=== PATIENT | female | born 1990 | race Caucasian/White ===

== ENCOUNTER 2016-11-19 05:13 | Inpatient (IN) | payer BC, OTHER ==
[2016-11-19] MEDS ORDERED: SODIUM CHLORIDE 0.9% FLUSH 10 ML SOL IV PRN (07:24)
[2016-11-19] MEDS ORDERED: OXYTOCIN 10000 MU/ML SOL IM PRN (07:24)
[2016-11-19] MEDS ORDERED: MEPIVACAINE HCL 1% MPF 30 ML SOL INFIL PRN (07:24)
[2016-11-19] MEDS ORDERED: METHYLERGONOVINE MALEATE 0.2 MG/ML SOL IM PRN (07:24)
[2016-11-19] MEDS ORDERED: CARBOPROST 250 MCG/ML SOL IM PRN (07:24)
[2016-11-19] MEDS ORDERED: LACTATED RINGERS 1,000 ML IV PRN (07:24)
[2016-11-19] MEDS ORDERED: FENTANYL CITRATE 50 MCG/ML SOL IV PRN (07:24)
[2016-11-19 07:56] LABS: BASOPHILS % (AUTO) 0 % (0-3); EOSINOPHILS % (AUTO) 0 % (0-9); HEMATOCRIT 38 % (35-47); MEAN CORPUSCULAR HGB CONC 35.4 gm/dl (32.0-36.0); MEAN CORPUSCULAR VOLUME 92 fL (81-99); MONOCYTES % (AUTO) 5.6 % (0-12)
[2016-11-19] MEDS: SODIUM CHLORIDE 0.9% FLUSH 10 ML SOL IV SCH ×2 (11:23→15:55)
[2016-11-19] MEDS ORDERED: TERBUTALINE SULFATE 1 MG/ML SOL SC PRN (13:11)
[2016-11-19] MEDS ORDERED: LACTATED RINGERS 1,000 ML IV SCH ×2 (13:15→16:00)
[2016-11-19] MEDS ORDERED: OXYTOCIN 10000 MU/ML 20,000 MU in LACTATED RINGERS 1,000 ML IV SCH (13:15)
[2016-11-19] MEDS ORDERED: OXYTOCIN 10000 MU/ML SOL ONE (14:00)
[2016-11-19] MEDS ORDERED: LACTATED RINGERS 1,000 ML ONE (14:00)
[2016-11-19] MEDS ORDERED: NALBUPHINE HCL 20 MG/ML SOL IV PRN (15:54)
[2016-11-19] MEDS ORDERED: NALOXONE HYDROCHLORIDE 0.4 MG/ML SOL IV PRN (15:54)
[2016-11-19] MEDS ORDERED: EPHEDRINE SULFATE 50 MG/ML SOL IV PRN (15:54)
[2016-11-19] MEDS ORDERED: DIPHENHYDRAMINE 50 MG/ML SOL IV PRN (15:54)
[2016-11-19] MEDS: LACTATED RINGERS 1,000 ML IV SCH ×2 (16:07→16:20)
[2016-11-19] MEDS ORDERED: ROPIVACAINE HYDROCHLORIDE 5 MG/ML SOL ONE (16:14)
[2016-11-19] MEDS ORDERED: FENTANYL CITRATE 50 MCG/ML SOL ONE (16:14)
[2016-11-19] MEDS ORDERED: LIDOCAINE HCL 2% MPF SOL ONE (16:14)
[2016-11-19] MEDS ORDERED: METHYLERGONOVINE MALEATE 0.2 MG TAB PO PRN (19:47)
[2016-11-19] MEDS ORDERED: BISACODYL 10 MG SUP PR PRN (19:47)
[2016-11-19] MEDS ORDERED: TEMAZEPAM 15MG 15 MG CAP PO PRN (19:47)
[2016-11-19] MEDS ORDERED: APAP/HYDROCODONE 325/5 TAB PO PRN (19:47)
[2016-11-19] MEDS ORDERED: FLEET ENEMA PR PRN (19:47)
[2016-11-19] MEDS ORDERED: WITCH HAZEL 1 EA PAD TOP PRN (19:47)
[2016-11-19] MEDS ORDERED: BENZOCAINE/MENTHOL 1 SPR TOP PRN (19:47)
[2016-11-19] MEDS: IBUPROFEN 600 MG TAB PO PRN (20:43)
[2016-11-19] MEDS: DOCUSATE SODIUM 100 MG SGL PO SCH (20:43)
[2016-11-20] MEDS: SODIUM CHLORIDE 0.9% FLUSH 10 ML SOL IV SCH ×2 (00:45→08:28)
[2016-11-20 01:25] VITALS: RESP 16
[2016-11-20] MEDS: IBUPROFEN 600 MG TAB PO PRN ×4 (02:44→20:13)
[2016-11-20 08:12] VITALS: O2SAT 97
[2016-11-20] MEDS: DOCUSATE SODIUM 100 MG SGL PO SCH ×2 (08:27→20:13)
[2016-11-21] MEDS: IBUPROFEN 600 MG TAB PO PRN ×3 (02:24→15:48)
[2016-11-21] MEDS ORDERED: MULTIVITAMIN2 1 EA TAB PO SCH (09:00)
[2016-11-21] MEDS ORDERED: FOLIC ACID 1 MG TAB PO SCH (09:00)
[2016-11-21] MEDS: DOCUSATE SODIUM 100 MG SGL PO SCH (09:41)
[2016-11-21 09:46] VITALS: TEMP 98.2
[2016-11-21 17:37] VITALS: BP 112/78; PULSE 72
== END 2016-11-21 18:05 | disposition home or self-care (01) | DRG 775 ==
LOC: OB 05:13 → OBSVTOIN 05:13
PROVIDERS: ADMIT Family Medicine; ATTEND Family Medicine
PROC: 10E0XZZ Delivery of Products of Conception, External Approach (ICD-10-PCS; principal; 2016-11-19)
PROC: 0KQM0ZZ Repair Perineum Muscle, Open Approach (ICD-10-PCS; 2016-11-19)
DX: O62.4 Hypertonic, incoordinate, and prolonged uterine contractions (principal); O76 Abnormality in fetal heart rate and rhythm complicating labor and delivery; O70.1 Second degree perineal laceration during delivery; Z3A.40 40 weeks gestation of pregnancy; Z37.0 Single live birth
CPT/HCPCS: 36415; 59025; 84112; 85018; 85025; J0670; J2001; J2590; J2795; J3010; J3105